=== PATIENT | male | born 1965 ===

== ENCOUNTER 2025-09-06 11:08 | Inpatient (IN) ==
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
--- NOTE | 2025-09-06 11:28 | Pre Anesthesia Assessment ---
Date of Service September 06, 2025 Pre Sedation Assessment Cardiovascular + regular rate Respiratory + respiratory effort normal Pre-Sedation Airway Assessment Hx Sleep Apnea: No Hx Difficult Intubation: No Short, Thick Neck: No Thyromental Distance: < 3.5 Finger Breadths Oral Cavity: + Dental Abnormalities ASA: ASA3 Procedure Planning Contraindications for Sedation: none Current Medications Reviewed: Yes Notes The planned sedation has been discussed with the patient. Informed Consent was obtained. I have identified the patient, determined the appropriateness of sedation and have assessed the patient immediately prior to the procedure. All medicine(s) and interventions are by my order.
[2025-09-06 11:29] LABS: Hematocrit (blood only) 46.0 % (42.0-52.0); Hemoglobin 14.4 g/dl (14.0-18.0); Immature Granulocytes # (auto) 0.03 K/uL (0.01-0.20); Immature Granulocytes % (auto) 0.3 %; Mean Corpuscular Hemoglobin 28.3 pg (25.0-34.0); Mean Corpuscular Volume 90.4 fL (80.0-100.0); Platelet Count 215 K/uL (130-400); RDW Standard Deviation 44.3 fL (36.4-46.3); Red Blood Count 5.09 M/uL (4.70-6.10); White Blood Count 9.82 K/ul (4.8-10.8)
--- NOTE | 2025-09-06 11:30 | Cardiology Consultation ---
Date of Consultation September 06, 2025 Assessment & Plan (1) Complete heart block: Patient seen emergently in the setting of complete heart block with prolonged pauses requiring CPR at outside hospital. He remains in heart block currently with wide ventricular escape in the 50s. He is chest pain-free but endorses 3 days of abdominal pain and shortness of breath with reported HS TropI of >70,000;. Concern for ACS involving RCA leading to conduction abnormalities. Recommend urgent cardiac catheterization and possible temporary transvenous pacemaker. Procedure discussed with patient and and agreeable on proceeding. Further recommendation pending findings of angiography. History of Present Illness History of Present Illness 60-year-old man seen emergently in the ED after transfer from [facility] after PEA cardiac arrest. Patient has no significant past cardiac history. Previously told had mitral valve prolapse. No history of diabetes or prior CVA. He has post back surgery. Was on Florinef at some point, unsure why but states was told no longer needs it. At time of arrival to [facility] patient awake, alert, normal O2 sats on NC. On minimal norepinephrine with SBP in the 100s, heart rates in the 50s. Per report from EMS had advanced AV block with 30 second pause requiring CPR, epi at outside hospital. On ROSC had complete heart block with wide escape rhythm in 50s to 60s. No other prolonged pauses in route. Per report HS TropI more than 70,000 at outside hospital. Here reports being chest pain-free. Reports 3 days of shortness of breath, orthopnea and abdominal pain. Symptoms unchanged today but presented to ED due to concern that had not improved over multiple days. ECG again showed complete heart block with wide escape rhythm in the 50s and T wave inversions inferiorly and in V4 through V6. 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 Non-smoker. Allergies Allergy/AdvReac Type Severity Reaction Status Date / Time No Known Allergies Allergy Unverified 05/30/20 13:45 Home Medications Medication Instructions Recorded Confirmed Type atorvastatin 20 mg tablet 20 mg PO HS 09/06/25 09/06/25 History sertraline 50 mg tablet 50 mg PO DAILY 09/06/25 09/06/25 History Patient History Social History Smoking Status: Never smoker Hx Alcohol Use: No Hx Substance Use: No Preferred Language: Swiss Communication Ability: Effective Collection Systems Worker Required: No Beliefs That Will Affect Care: None Current Living Situation: Spouse Other Information That Helps Us Care for You: No Feels Safe at Home: Yes Safety Concerns: Feels Safe At This Time Assistive Devices: Glasses Review of Systems Review of Systems: None obtained the setting of emergent situation Physical Exam Physical Exam: General: Comfortable, dorsey HEENT: Sclerae anicteric Lungs: Clear anteriorly Cardiac: Bradycardic, no murmurs Vascular: Nonpalpable radial pulses. 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 Abdomen: Soft, nontender Extremities: Distal lower extremities cool no peripheral edema Neuro: Nonfocal Psych: Alert orient x3, normal affect and mood PG Care Time/CCT Total # of Minutes Spent Total Time Spent with Patient: Total time spent is greater than 50% in coordination of care (as documented) at patient's floor/unit and/or counseling patient: Coding Level of Care Code 34869 OFFICE CONSULT LVL 40M Diagnoses Complete heart block I44.2
[2025-09-06] MEDS: NITROGLYCERIN/D5W 100MCG/ML 20ML SYR ONE (11:38)
[2025-09-06] MEDS: niCARdipine 2,000 MCG/20 ML SYR ONE (11:38)
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
[2025-09-06 11:47] LABS: Alanine Aminotransferase 38 U/L (7-52); Albumin Globulin Ratio 1.4 (0.9-2); Albumin Level 3.8 gm/dl (3.4-5.0); Alkaline Phosphatase 102 U/L (34-104); Anion Gap 7 (3-11); Bilirubin,Total 0.9 mg/dl (0.2-1.0); Blood Urea Nitrogen 26 mg/dl (6-23); Calcium 8.0 mg/dl (8.6-10.3); Carbon Dioxide 26 mmol/L (21-32); Chloride 103 mmol/L (98-107); Globulin 2.7 gm/dl (2.5-4.0); Glucose 172 mg/dl (70-99(Fasting)); Lipase 14 U/L (11-82); Potassium 5.2 mmol/L (3.5-5.1); Sodium 136 mmol/L (136-145); Total Protein 6.5 gm/dl (6.0-8.3)
[2025-09-06] MEDS: MIDAZOLAM HCL 1 MG/ML 2ML VIAL ONE (12:02)
[2025-09-06] MEDS: HEPARIN (PORCINE) 1000 UNIT/ML 10 ML (CATH LAB USE ONLY) ONE (12:02)
[2025-09-06] MEDS: ATROPINE SULFATE 0.1 MG/ML 10ML SYR IV ONE (12:03)
[2025-09-06] MEDS: ONDANSETRON INJ 2 MG/ML 2 ML VIAL ONE (12:03)
[2025-09-06] MEDS: OPTIRAY 350 ONE (12:03)
[2025-09-06] MEDS: RAPID SEQUENCE INDUCTION BAG ONE (12:03)
[2025-09-06] MEDS: FUROSEMIDE 40 MG/4 ML VIAL IV ONE (12:07)
--- NOTE | 2025-09-06 12:17 | Post Anesthesia Assessment ---
Date of Service September 06, 2025 Post Sedation Assessment Vital Signs Temp Pulse Pulse Resp BP BP Pulse Ox 09/06/25 11:08 59 L 18 109/85 97 09/06/25 11:08 97 09/06/25 11:08 09/06/25 11:08 59 L 18 97 09/06/25 11:08 97.9 F 59 L 18 109/85 97 O2 Del Method O2 Flow Rate 09/06/25 11:08 Nasal Cannula 2 09/06/25 11:08 Nasal Cannula 2 09/06/25 11:08 Nasal Cannula 2 09/06/25 11:08 Nasal Cannula 2 09/06/25 11:08 Nasal Cannula 2 Recovery Score Activity: Moves 4 extremities Respiration: Deep Breath/Cough Circulation: +/-20% PreAnes Value Consciousness: Fully Awake Oxygen Saturation: O2 needed for >90% Discharge Sedation Level of Care: Fast Track Phase II
--- NOTE | 2025-09-06 12:46 | Post Operative Brief Note ---
Cardiology Brief Post Op Date of Surgery September 06, 2025 Pre & Post Diagnosis ACS, complete heart block Procedure Coronary angiography Left heart catheterization Transvenous temporary pacemaker placement [employer] Rosario MD Umbrella Cutter Harriet Estimated Blood Loss 20 Findings See Below Normal coronary arteries Elevated LVEDP 26 Mildly reduced systolic function, inferior wall motion abnormality on LV gram. Successful placement of transvenous pacemaker via right CFV Anesthesia Type RN Sedation Complications none Disposition Accompanied Patient To Recovery: Yes Disposition: Recovery Room
--- NOTE | 2025-09-06 13:37 | Cardiac Catheterization ---
[facility] Data: Manager Sourcing Cardiac Status Clinical evaluation leading to the procedure CAD Presenation: Non STEMI Anginal Classification: CCS IV Diagnostic Physicians Name: Power Rosario MD Closure Device Recommendations: Medical Therapy and/or Counseling Cardiac Cath Procedure Full Procedure Date September 06, 2025 Pre-Procedure Diagnosis Pre-Procedure Diagnosis: Non STEMI and Arrhythmia (Complete heart block) AUC Score AUC Score: 9 Post-Procedure Diagnosis Post-Procedure Diagnosis: Mild CAD and Elevated Intracardiac Pressures Procedure(s) Performed Procedure(s) Performed: Coronary Angiography, Left Heart Cath, LV Angiography and Ultrasound Guided Vascular Access Linen Room Houseperson Power Rosario MD Room Designer(s) Harriet Estimated Blood Loss Estimated Blood Loss: 20 Medication(s) Medication(s): Fentanyl, Heparin, Lidocaine 1%, Nicardipine, Nitroglycerin and Versed Summary of Findings Indication: Suspected ACS, high degree AV block Access: 6 Fr slender right radial artery under ultrasound guidance. 7 Fr CFV under ultrasound guidance Catheters: [place], diagnostic JL 3.5, pigtail Findings: LM -Short, normal caliber, no significant disease LAD -medium caliber, 20% mid LAD stenosis at takeoff of large diagonal. Remainder of LAD without significant disease and wraps around apex. Large D1 with 20 to 30% ostial stenosis but remainder of vessel without significant disease. Circumflex -medium caliber, codominant, mid segment luminal irregularities. Distal vessel without significant disease. Medium OM 2 without disease. Small left PLB, PDA without disease. PDA tapers prior to apex. RCA -small to medium caliber, angiographically normal. Small RPDA without disease and tapers prior to apex. LVEDP -28. With continued high degree AV block decision made to place transvenous pacemaker. Right CFV accessed under ultrasound guidance with placement of 7 Fr sheath 6 Fr transvenous pacemaker navigated under fluoroscopy into right ventricle. Successful pacing confirmed to outputs <1 mA Final pacemaker settings: VVI 50 bpm, 5 mA Arterial Closure: TR band Summary: 1. Minimal nonobstructive coronary artery disease - 20% mid LAD, 25% ostial D1 2. Left-sided heart failure (LVEDP 28). LV gram LVEF 50% with basal to mid inferior hypokinesis. 3. Successful placement of temporary transvenous pacemaker Recommendations: No acute or high risk obstructive disease noted on angiography. With significantly elevated troponin, apparent wall motion abnormality question myocarditis versus transient obstructive disease with eccentric plaque or embolism. Echocardiogram pending Check inflammatory markers, viral and Lyme studies Trend troponin until peak Recommend heparin infusion overnight ASCVD risk factor modification Continue diuresis. Was given IV Lasix 40 mg x 1 in Manager Sourcing Wean norepinephrine as able Maintain transvenous pacemaker for now. Hopeful conduction will improve and will not need permanent pacemaker. Hemodynamics Rest Ao:: 115/69/84 Final Ao: 108/75/88 LV: 100/28 Recommendations Recommendations: Medical Therapy and/or Counseling Radiation Exposure (mGy) 1627 Contrast (mls) 100 Anesthesia Moderate 9705-6995 Procedural Complication(s) None Disposition ICU I attest to the content of the Intraoperative Record and any orders documented therein. Any exceptions are noted below. [facility] Card Cath Procedure Codes Cardiac Catheterization Procedure 1: Cardiovascular Cath Procedures: 72997 Coronaries and LHC (+/-LV) Therapeutic Services & Ancillary Procedure 1: Cardiovascular Tx and Anc Procedures: 37283 Ultrasonic Guidance Vascular Access Procedure 2: Cardiovascular Tx and Anc Procedures: 39118 Ultrasonic Guidance Vascular Access Moderate Sedation Procedure 1: Sedation/Anesthesia: 42903 Mod Sedation by the same physician;Init15 Min C hild Age 5 & Up Procedure 2: Sedation/Anesthesia: 24247 Mod Sedation by the same physician; Ea [id number] Minutes PG Care Time/CCT Total # of Minutes Spent Total Time Spent with Patient: Total time spent is greater than 50% in coordination of care (as documented) at patient's floor/unit and/or counseling patient:
--- NOTE | 2025-09-06 14:12 | Billing Data ---
Date of Service September 06, 2025 Coding Level of Care Code 60656 INT INP/OBS CARE
--- NOTE | 2025-09-06 14:13 | Critical Care Consultation ---
Date of Consultation September 06, 2025 Assessment & Plan (1) Urinary retention: (2) Elevated troponin: (3) Cardiac arrest: (4) Complete heart block: Plan George Sandoval is a 60-year-old male with no significant past medical history who presented to [facility] with abdominal pain and shortness of breath. While being evaluated at [facility] the patient became unresponsive with no palpable pulse and chest compressions were started. ROSC was achieved after 30 seconds. Rhythm post ROSC showed complete heart block and patient was started on transcutaneous pacing. Transfer to [facility] ED transvenous pacemaker was placed. Neuro: -Neuro intact -Monitor and image as appropriate. CV: Cardiac arrest possible cardiac event/ischemic etiology in setting of CHB; Shock; ELOISE; Type II demand ischemia -Patient on Levophed post cardiac cath. No off on evaluation. -Cath showed no overt occlusion of coronary arteries. Possible decrease wall motion in inferior wall. -Heparin gtt started no bolus. -TTE pending -Troponin 43860. Repeat pending. Third degree heart block -Transvenous pacemaker in place at 5mA and 50bpm. Patient intrinsic rate 60bpm. -Check TSH, IgA, UDS, and evaluation for myocarditis. Pulm: -No issues -Maintain SpO2 > 92% -Patient on 2L nasal cannula -Wean to SpO2 goal -CXR ordered. No PTX. GI: -No acute issues -Advance diet as tolerated : Urinary retention -Bladder scan with > 850. Voiding small amounts. -Difficult Gary placement -Urology consulted. Hyperkalemia -K post cath 5.2 -Consider 10 units of insulin with dextrose and calcium if arrhythmia develops. Possible BONNIE stage 1 -Creatinine 1.4 -Unclear what baseline is -Possible hypoperfusion from arrest v. post obstructive -Monitor renal function qam Heme: -No acute issues -Monitor CBC qam Endo: Stress Hyperglycemia -Maintain BG 140-180 -Start ICU insulin gtt protocol. ID: -WBC 8.62 -Afebrile -Monitor and culture as appropriate. Prophylaxis: -GI prophylaxis not indicated. -Heparin gtt -SCD for mechanical DVT prophylaxis Disposition: ICU for third degree heart block requiring TVP and vasoactive medications in setting of cardiac arrest with risk for decline. Patient is full code. Patient updated at bedside by ICU provider on 09/06/25. Thanks you for allowing us to participate in this patient's care. Please feel free to reach out with questions or concerns. I have personally spent 45 minutes of critical care time in the direct management of this patient. This is a life/limb threatening event. This includes time spent evaluating patient, direct bedside care, chart review, placing orders, interpretation of diagnostic studies, discussion with consultants, patient, and family members, as well as other required patient management activities. This time is exclusive of all separately billable procedures, and teaching time and separate from and in addition to any other critical care service time. Supervising Physician Co-Signing Physician Notes I have personally evaluated and examined this patient. I agree with assessment and plan of Geoff ZHENG. Travel history: No were outside of [place] with the exception of [place] ([place] approximately 20 years ago. No new immunizations, no sick contacts, no change in bowel habits with the exception of constipation starting approximately Friday. Patient is not a . No family history of autoimmune disease particularly lupus or rheumatoid Continuing evaluation for myocarditis. Checking TSH, UDS, tissue trans glutaminase IgA antibody: Send out lab: For possible cross-reactivity with celiac disease given patient had prodromal GI upset, IgA level, (patient low risk for celiac disease)[employer] respiratory panel, HIV, coxsackie A antibody, ESR, rheumatoid factor: reference lab, NIMESH panel, RPR: Reference labacute hepatitis panel, parvovirus IgG and IgM: Reference panel, herpes virus 6 reference lab, acute Henrietta-Otoole panel, CMV screen and titer: Reference lab. Patient does not have elevated white count nor eosinophilia. Discussed with cardiology. No indication for treatment with high-dose steroids at this point as etiology is unclear and underlying function appears to be adequate not withstanding the intermittent complete heart block, if patient were to decompensate he would likely benefit from endocardial biopsy and high-dose steroid administration. At that point he would require higher level of care as we cannot perform endocardial biopsy. History of Present Illness Reason for Consultation: Post cardiac arrest/high degree AV block with TVP Attending Physician: Power Rosario MD History of Present Illness George Sandoval is a 60-year-old male with no significant past medical history who presented to [facility] with abdominal pain and shortness of breath. Theses symptoms had been occurring for the past few days with a waxing and waning pattern. While being evaluated at [facility] the patient became unresponsive with no palpable pulse and chest compressions were started. ROSC was achieved after 30 seconds. Rhythm post ROSC showed complete heart block and patient was started on transcutaneous pacing. Patient also hypotensive and norepinephrine gtt started. Patient transferred to [facility] ED where a heart alert was activated. Patient taken to electronic lab technician where a left heart cath was performed which showed no overtly occluded coronary arteries. There was noted to be some decrease in inferior wall motion. A transvenous pacemaker was placed. The patient was brought back to the ICU post cath for continued evaluation and management of complete heart block s/p cardiac arrest requiring transvenous pacemaker and vasoactive medications. Allergies Allergy/AdvReac Type Severity Reaction Status Date / Time No Known Allergies Allergy Unverified 05/30/20 13:45 Home Medications Medication Instructions Recorded Confirmed Type atorvastatin 20 mg tablet 20 mg PO HS 09/06/25 09/06/25 History sertraline 50 mg tablet 50 mg PO DAILY 09/06/25 09/06/25 History Patient History Social History Smoking Status: Never smoker Hx Alcohol Use: No Hx Substance Use: No Preferred Language: Namibian Communication Ability: Effective Hand Assembler Required: No Beliefs That Will Affect Care: None Current Living Situation: Spouse Other Information That Helps Us Care for You: No Feels Safe at Home: Yes Safety Concerns: Feels Safe At This Time Assistive Devices: Glasses Review of Systems Review of Systems: All systems reviewed & are unremarkable except as noted in HPI & below Physical Exam Physical Exam: VITALS: Reviewed. WEIGHT/BMI reviewed. GEN: Healthy appearing, well-developed, NAD. PSYCH: Good Judgment. AOx3. Normal memory, mood, and affect. HEENT -Head: NC/AT; -Eyes: PERRL, EOMI. No discharge or redn ess; -Ears: External ears are normal. -Nose: Normal nares. -Mouth and throat: MMM. Normal gums, muc tomasa, palate,. Good dentition. NECK: Supple, with no masses. CV: slow rate with regular rhythm, no m/r/g. LUNGS: CTAB, no w/r/c. ABD: Soft, NT/ND, NBS, no masses or organomegaly. : N/A SKIN: Warm, well perfused. No skin rashes or abnormal lesions. MSK: No deformities, Normal gait. EXT: No clubbing, cyanosis, or edema. Right femoral transvenous pacemaker in place. NEURO: Normal muscle strength and tone. No focal deficits. Results & Data Results & Data Vital Signs (Past 12 Hours) Vital Signs Temp Pulse Pulse Resp BP BP Pulse Ox 09/06/25 13:11 09/06/25 13:11 36.8 C 66 21 114/78 97 09/06/25 12:45 66 18 122/85 94 09/06/25 12:30 67 18 122/85 94 09/06/25 12:20 74 18 118/86 94 09/06/25 11:08 59 L 18 109/85 97 09/06/25 11:08 97 09/06/25 11:08 09/06/25 11:08 59 L 18 97 09/06/25 11:08 36.6 C 59 L 18 109/85 97 O2 Del Method O2 Flow Rate 09/06/25 13:11 Nasal Cannula 2 09/06/25 13:11 Nasal Cannula 2 09/06/25 12:45 Room Air 09/06/25 12:30 Room Air 09/06/25 12:20 Room Air 09/06/25 11:08 Nasal Cannula 2 09/06/25 11:08 Nasal Cannula 2 09/06/25 11:08 Nasal Cannula 2 09/06/25 11:08 Nasal Cannula 2 09/06/25 11:08 Nasal Cannula 2 Critical Care Results & Data Vital Signs (Past 12 Hours) Vital Signs Temp Pulse Pulse Resp BP BP Pulse Ox 09/06/25 13:11 09/06/25 13:11 36.8 C 66 21 114/78 97 09/06/25 12:45 66 18 122/85 94 09/06/25 12:30 67 18 122/85 94 09/06/25 12:20 74 18 118/86 94 09/06/25 11:08 59 L 18 109/85 97 09/06/25 11:08 97 09/06/25 11:08 09/06/25 11:08 59 L 18 97 09/06/25 11:08 36.6 C 59 L 18 109/85 97 O2 Del Method O2 Flow Rate 09/06/25 13:11 Nasal Cannula 2 09/06/25 13:11 Nasal Cannula 2 09/06/25 12:45 Room Air 09/06/25 12:30 Room Air 09/06/25 12:20 Room Air 09/06/25 11:08 Nasal Cannula 2 09/06/25 11:08 Nasal Cannula 2 09/06/25 11:08 Nasal Cannula 2 09/06/25 11:08 Nasal Cannula 2 09/06/25 11:08 Nasal Cannula 2 Lab & Micro Results (Past 24 Hours) RBC 4.99 M/uL (4.70-6.10) 09/06/25 WBC 8.62 K/ul (4.8-10.8) 09/06/25 Hgb 14.2 g/dl (14.0-18.0) 09/06/25 Hct 44.9 % (42.0-52.0) 09/06/25 MCV 90.0 fL (80.0-100.0) 09/06/25 MCH 28.5 pg (25.0-34.0) 09/06/25 MCHC 31.6 g/dL (32.0-36.0) L 09/06/25 RDW Standard Deviation 44.8 fL (36.4-46.3) 09/06/25 RDW Coefficient of Variation 13.6 % (11.5-14.5) 09/06/25 Plt Count 186 K/uL (130-400) 09/06/25 MPV 10.5 fL (9.4-12.4) 09/06/25 Neutrophils (%) (Auto) 74.8 % 09/06/25 Lymphocytes (%) (Auto) 14.4 % 09/06/25 Monocytes # (Auto) 0.85 K/uL (0.11-0.59) H 09/06/25 Eosinophils # (Auto) 0.01 K/uL (0.00-0.50) 09/06/25 Immature Granulocyte % (Auto) 0.3 % 09/06/25 Neutrophils # (Auto) 6.45 K/uL (1.40-6.50) 09/06/25 Lymphocytes # (Auto) 1.24 K/uL (1.20-3.40) 09/06/25 Monocytes # (Auto) 0.85 K/uL (0.11-0.59) H 09/06/25 Eosinophils # (Auto) 0.01 K/uL (0.00-0.50) 09/06/25 Basophils # (Auto) 0.04 K/uL (0.00-0.20) 09/06/25 Immature Granulocyte # (Auto) 0.03 K/uL (0.01-0.20) 5 Na 136 mmol/L (136-145) 09/06/25 K 5.2 mmol/L (3.5-5.1) H 09/06/25 Cl 103 mmol/L (98-107) 09/06/25 CO2 26 mmol/L (21-32) 09/06/25 Anion Gap 7 (3-11) 09/06/25 BUN 26 mg/dl (6-23) H 09/06/25 Creatinine 1.39 mg/dl (0.6-1.4) 09/06/25 BUN/Creatinine Ratio 18.7 (10-20) 09/06/25 Glu 172 mg/dl (70-99(Fasting)) H 09/06/25 Ca 8.0 mg/dl (8.6-10.3) L 09/06/25 Total Bilirubin 0.9 mg/dl (0.2-1.0) 09/06/25 AST 145 U/L (13-39) H 09/06/25 ALT 38 U/L (7-52) 09/06/25 Alkaline Phosphatase 102 U/L (34-104) 09/06/25 TP 6.5 gm/dl (6.0-8.3) 09/06/25 Albumin 3.8 gm/dl (3.4-5.0) 09/06/25 Globulin 2.7 gm/dl (2.5-4.0) 09/06/25 Albumin/Globulin Ratio 1.4 (0.9-2) 09/06/25 Calcium Level 8.0 mg/dl (8.6-10.3) L 09/06/25 11:13 Prothromb Time International Ratio Pending 09/06/25 15:5 5 RT Ventilator Mngmt (Last Documented) Ventilator Ordered Settings Respiratory Rate 21 09/06/25 13:11 Ventilator - PT Measurements Respiratory Rate 21 Coding Level of Care Code 33598 CRITICAL CARE 1ST 30-74M Diagnoses Urinary retention R33.9 Elevated troponin R79.89 Cardiac arrest I46.9 Complete heart block I44.2
--- NOTE | 2025-09-06 14:16 | XCELERA ---
[id number]
[2025-09-06] MEDS ORDERED: HEPARIN SOD (PORCINE) 1000 UNIT/ML IV ONE (14:28)
--- NOTE | 2025-09-06 15:22 | Electrocardiogram Report ---
Test Reason : Blood Pressure : */* mmHG Vent. Rate : 54 BPM Atrial Rate : 129 BPM P-R Int : * ms QRS Dur : 158 ms QT Int : 498 ms P-R-T Axes : 79 113 -84 degrees QTcB Int : 472 ms Sinus tachycardia with complete heart block and a ventricular escape rhythm Non-specific intra-ventricular conduction block Lateral infarct , age undetermined Abnormal ECG When compared with ECG of 12-Jul-2014 08:54, Significant changes have occurred Confirmed by Rigo Chen ([id number]) on 09/06/2025 3:21:59 PM Referred By: REFERRED SELF Confirmed By: Rigo Chen
[2025-09-06] MEDS: Heparin IV Adult Wt-Based Standard w/ INITIAL Bolus Protocol IV STA (15:25)
[2025-09-06 15:42] LABS: Hematocrit (blood only) 44.9 % (42.0-52.0); Hemoglobin 14.2 g/dl (14.0-18.0); Immature Granulocytes # (auto) 0.03 K/uL (0.01-0.20); Immature Granulocytes % (auto) 0.3 %; Mean Corpuscular Hemoglobin 28.5 pg (25.0-34.0); Mean Corpuscular Volume 90.0 fL (80.0-100.0); Platelet Count 186 K/uL (130-400); RDW Standard Deviation 44.8 fL (36.4-46.3); Red Blood Count 4.99 M/uL (4.70-6.10); White Blood Count 8.62 K/ul (4.8-10.8)
[2025-09-06] MEDS: SERTRALINE HCL 50 MG TABLET PO SCH (15:58)
[2025-09-06] MEDS: METOCLOPRAMIDE HCL INJ 5 MG/ML 2 ML VIAL ONE (16:04)
--- NOTE | 2025-09-06 16:23 | Urology Consultation ---
Date of Consultation September 06, 2025 Assessment & Plan (1) Urinary retention: He had over 800ml of urine on bladder scan and multiple failed attempts at passing a catheter. We recommended repeat catheter attempt and he agreed to proceed with this. 18 fr coude catheter was placed without difficulty and clear yellow urine was drained. No hematuria. Recommend catheter for 7-10 days, follow up as outpatient for voiding trial. Could consider addition of tamsulosin. Procedure: Urethra was prepped with betadine, lidocaine gel was injected into the urethra. A 18 fr coude catheter was placed without difficulty and balloon inflated with 10ml. Clear yellow urine was drained. He tolerated this well without complications. History of Present Illness Reason for Consultation: urinary retention, difficult chino catheter placement Attending Physician: Power Rosario MD History of Present Illness 60 year old patient admitted today with acute coronary syndrome, complete heart block, underwent Coronary angiography, Left heart catheterization, Transvenous temporary pacemaker placement with Dr Rosario. In the ICU at this time. Has been voiding small amounts, bladder scan showed over 800ml of retained urine. He has some pressure in his lower abdomen. Denies past urological problems/surgery, no h/o of BPH that he is aware of. No prior voiding difficulties. Multiple attempts were made to pass catheter prior to our consult. Allergies Allergy/AdvReac Type Severity Reaction Status Date / Time No Known Allergies Allergy Unverified 05/30/20 13:45 Home Medications Medication Instructions Recorded Confirmed Type atorvastatin 20 mg tablet 20 mg PO HS 09/06/25 09/06/25 History sertraline 50 mg tablet 50 mg PO DAILY 09/06/25 09/06/25 History Patient History Social History Smoking Status: Never smoker Hx Alcohol Use: No Hx Substance Use: No Preferred Language: Frisian Communication Ability: Effective Lead Pressman Required: No Beliefs That Will Affect Care: None Current Living Situation: Spouse Other Information That Helps Us Care for You: No Feels Safe at Home: Yes Safety Concerns: Feels Safe At This Time Assistive Devices: Glasses Physical Exam Constitutional: well developed and well nourished; no acute distress Respiratory: normal respiratory effort Gastrointestinal (Abdomen): Percussion/Palpation: abdomen nontender Psychiatric: A+Ox3, euthymic affect Genitourinary: no penis abnormality and no meatus abnormal Results & Data Vital Signs (Past 12 Hours) Vital Signs Temp Pulse Pulse Resp BP BP Pulse Ox 09/06/25 13:11 09/06/25 13:11 36.8 C 66 21 114/78 97 09/06/25 12:45 66 18 122/85 94 09/06/25 12:30 67 18 122/85 94 09/06/25 12:20 74 18 118/86 94 09/06/25 11:08 59 L 18 109/85 97 09/06/25 11:08 97 09/06/25 11:08 09/06/25 11:08 59 L 18 97 09/06/25 11:08 36.6 C 59 L 18 109/85 97 O2 Del Method O2 Flow Rate 09/06/25 13:11 Nasal Cannula 2 09/06/25 13:11 Nasal Cannula 2 09/06/25 12:45 Room Air 09/06/25 12:30 Room Air 09/06/25 12:20 Room Air 09/06/25 11:08 Nasal Cannula 2 09/06/25 11:08 Nasal Cannula 2 09/06/25 11:08 Nasal Cannula 2 09/06/25 11:08 Nasal Cannula 2 09/06/25 11:08 Nasal Cannula 2 PG Care Time/CCT Total # of Minutes Spent Total Time Spent with Patient: Total time spent is greater than 50% in coordination of care (as documented) at patient's floor/unit and/or counseling patient: Coding Level of Care Code 90063 IN/OBS CONSULT LVL 3,45M Diagnoses Urinary retention R33.9
--- NOTE | 2025-09-06 16:37 | XRay Report ---
EXAM: Portable AP chest radiograph TECHNIQUE: AP portable radiograph of the chest was obtained. INDICATION: Shortness of breath Comparison: Chest radiograph FINDINGS: LINES and TUBES: None CARDIOVASCULAR: Cardiac silhouette is mildly enlarged in size. LUNGS/PLEURA: No focal consolidation identified. Bibasilar atelectasis. Mild pulmonary vascular congestion and chronic interstitial lung changes. Small pleural fluids may be present. No discernible pneumothorax. OSSEOUS/OTHER: No displaced acute osseous process identified. Partially included thoracolumbar spine fusion device. IMPRESSION: Mild congestive changes of the cardiovascular system as above. Electronically signed by Salty Pulido 09-06-2025 4:36 PM
[2025-09-06 16:42] LABS: Immunoglobulin A 278.7 mg/dl (70-400); Immunoglobulin G 806.5 mg/dl (635-1741); Immunoglobulin M 70.3 mg/dl (45-281)
[2025-09-06] MEDS: LIDOCAINE 2% JELLY 5 ML TUBE EXT ONE (16:48)
[2025-09-06] MEDS: METOCLOPRAMIDE HCL INJ 5 MG/ML 2 ML VIAL IV ONE (16:48)
[2025-09-06 16:58] LABS: Thyroid Stimulating Hormone 3.148 uIu/ml (0.300-4.500)
[2025-09-06 17:46] LABS: Amphetamines+Metham, Urine Neg (Neg); MDMA (Ecstacy), Urine Neg (Neg); Marijuana, Urine Neg (Neg)
[2025-09-06] MEDS: LORazepam 1 MG TAB PO STA (17:46)
[2025-09-06 18:13] LABS: INR 1.0 (0.9-1.1); Partial Thromboplastin Time 27 Seconds (21-31); Prothrombin Time 10.6 Seconds (9.0-12.0)
[2025-09-06 18:13] LABS: Chlamydia pneumoniae PCR Not Detected (NotDetected); Coronavirus 229E PCR Not Detected (NotDetected); Coronavirus CoV-2 (COVID19)PCR Not Detected (NotDetected); Coronavirus HKU1 PCR Not Detected (NotDetected); Coronavirus NL63 PCR Not Detected (NotDetected); Coronavirus OC43PCR Not Detected (NotDetected); Human Metapneumovirus PCR Not Detected (NotDetected); Parainfluenza Virus 1 PCR Not Detected (NotDetected); Parainfluenza Virus 2 PCR Not Detected (NotDetected); Parainfluenza Virus 3 PCR Not Detected (NotDetected); Parainfluenza Virus 4 PCR Not Detected (NotDetected); Respiratory Syncytial VirusPCR Not Detected (NotDetected); Rhinovirus/Enterovirus PCR Not Detected (NotDetected)
[2025-09-06] MEDS: HEPARIN 25000 UNIT/500 ML D5W 25,000 UNITS/500 ML BAG IV SCH (18:22)
[2025-09-06 19:11] LABS: Hep B Surface Ag with confirm Negative (Negative)
[2025-09-06 19:16] LABS: Hep C Ab Rflx HepCQuant RNA Negative (Negative)
[2025-09-06 19:24] LABS: EBV Nuclear Antigen IgG Ab Negative; EBV Nuclear Antigen IgG Quant < 3.0 U/mL (< 18.0)
[2025-09-06 19:25] LABS: EBV Early Antigen IgG Ab Positive (Negative); EBV Early Antigen IgG Quant 21.7 U/mL (< 9.0); EBV IgM Antibody Negative; EBV IgM Quant < 10.0 U/mL (< 36.0)
[2025-09-06 19:26] LABS: EBV IgG Antibody Positive; EBV IgG Quant 252.0 U/mL (< 18.0)
[2025-09-06 20:12] LABS: Anion Gap 12.0 (3-11); Blood Urea Nitrogen 31.0 mg/dl (6-23); Calcium 8.5 mg/dl (8.6-10.3); Carbon Dioxide 22.0 mmol/L (21-32); Chloride 102.0 mmol/L (98-107); Creatinine Clr Calc Pharmacy 69.7 ml/min; Glucose 177.0 mg/dl (70-99(Fasting)); Magnesium 2.3 mg/dl (1.7-2.4); Potassium 4.4 mmol/L (3.5-5.1); Sodium 136.0 mmol/L (136-145)
[2025-09-06] MEDS: COLCHICINE 0.6 MG TAB PO SCH (20:21)
[2025-09-07] MEDS: MELATONIN 3 MG TAB PO PRN
[2025-09-07] MEDS: LORazepam 1 MG TAB PO STA (00:01)
[2025-09-07 01:24] LABS: ANTI-Xa, UFH(UnfractionatedHep 0.68 IU/ml (0.3-0.7)
[2025-09-07] MEDS: ACETAMINOPHEN 325 MG TAB PO PRN (04:33)
[2025-09-07 05:02] LABS: Hematocrit (blood only) 45.1 % (42.0-52.0); Hemoglobin 14.8 g/dl (14.0-18.0); Immature Granulocytes # (auto) 0.03 K/uL (0.01-0.20); Immature Granulocytes % (auto) 0.3 %; Mean Corpuscular Hemoglobin 28.5 pg (25.0-34.0); Mean Corpuscular Volume 86.9 fL (80.0-100.0); Platelet Count 197 K/uL (130-400); RDW Standard Deviation 43.5 fL (36.4-46.3); Red Blood Count 5.19 M/uL (4.70-6.10); White Blood Count 11.29 K/ul (4.8-10.8)
[2025-09-07] MEDS: ONDANSETRON INJ 2 MG/ML 2 ML VIAL IV PRN (05:11)
[2025-09-07 05:20] LABS: Alanine Aminotransferase 69.0 U/L (7-52); Albumin Level 3.8 gm/dl (3.4-5.0); Alkaline Phosphatase 102.0 U/L (34-104); Anion Gap 12.0 (3-11); Bilirubin,Total 0.7 mg/dl (0.2-1.0); Blood Urea Nitrogen 43.0 mg/dl (6-23); Calcium 8.5 mg/dl (8.6-10.3); Carbon Dioxide 21.0 mmol/L (21-32); Chloride 99.0 mmol/L (98-107); Cholesterol 161.0 mg/dl (0-200); Creatinine Clr Calc Pharmacy 58.0 ml/min; Glucose 198.0 mg/dl (70-99(Fasting)); HDL Cholesterol 29.0 mg/dl; Magnesium 2.6 mg/dl (1.7-2.4); Potassium 4.4 mmol/L (3.5-5.1); Sodium 132.0 mmol/L (136-145); Total Protein 6.7 gm/dl (6.0-8.3); Triglycerides 188.0 mg/dl (0-150)
[2025-09-07 06:06] LABS: ANTI-Xa, UFH(UnfractionatedHep 0.84 IU/ml (0.3-0.7)
--- NOTE | 2025-09-07 06:36 | Communication Note ---
Date of Service: September 07, 2025 Patient monitored overnight. TVP in place, notified in the early AM hours of some abnormalities with pacemaker sensing. Appears there is pacing on T waves. EKG performed. Patient also nauseous. Dr. Rosario was in house for a procedure and kindly came to bedside. He attempted to adjust the sensitivity without improvement. His kasaan rate is in the 90s and thus the TVP was turned off and left in place. Shortly thereafter the patient had episode of large volume watery emesis, approximately 1L. He became hypoxic to the low 80s despite Oxymask at 15L. He was transitioned to HFNC with improvement. He is in no distress, denies dyspnea. No clinical signs of aspiration. CXR performed. ABG confirms profound hypoxemia with pO2 52. At this point I performed POCUS. On my view the patient's LVEF has dropped significantly to around 20-25% grossly. Septum has movement, apical akinesis, lateral hypokinesis. Surprisingly his blood pressure is holding at 94/67 (70). Cr has bumped to 1.66 with oliguria overnight. Troponin and inflammatory markers continue to rise. Given this clinical decompensation I will reach out again to Dr. Rosario. I am concerned he is approaching cardiogenic shock with lack of forward flow. Limited TTE ordered for this AM. Will reach out to Dr. Rosario with these findings and discuss with Dr. Starks regarding further recommendations. Continue support with HFNC, frequent VS, TVP in place and off at this time. HOB up. Zofran PRN. Consideration of high dose steroids. Consideration of transfer to tertiary care for mechanical support. Addendum 0645: Will start Solumedrol. Plan for RHC with Dr. Rosario this AM. Decision regarding transfer to tertiary care pending further evaluation. Coding Level of Care Code None
[2025-09-07 06:37] LABS: iSTAT Art Bld Gas Base Excess -6.0 mmol/L (-9-1.8); iSTAT Art Bld Gas pCO2 Correct 31 mmHg (35-46); iSTAT Art Bld Gas pH Corrected 7.395 (7.35-7.45); iSTAT Arterial Blood Gas pO2 C 52
--- NOTE | 2025-09-07 06:53 | XRay Report ---
EXAM: XR chest 1V portable CLINICAL HISTORY: Hypoxia TECHNIQUE: An X-ray image of the chest was obtained in the AP projection. 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 FINDINGS: Diffuse, ill-defined ground-glass opacities are noted involving both lungs, suggesting the possibility of congestion or edema. Differential possibilities include multifocal pneumonitis. The cardiomediastinal silhouette is within normal limits. Left pleural space is obliterated. No acute osseous abnormality is identified. IMPRESSION: Diffuse, ill-defined ground-glass opacities are noted involving both lungs with bilatreal hilar prominence-New onset. Left pleural space is obliterated-stable. Electronically signed by Oziel Betts 09-07-2025 06:53 AM
[2025-09-07] MEDS ORDERED: STAT IV Infusion **Titration per Protocol STA ×3 (06:59→09:49)
--- NOTE | 2025-09-07 07:20 | Hospitalist Progress Note ---
Date of Service September 07, 2025 Assessment & Plan (1) Cardiac arrest: (2) Complete heart block: (3) Elevated troponin: Plan Pt is a 60 yo male without significant PMH who presents as transfer [facility] with SOB, abdominal pain, elevated troponin, complete heart block and s/p ca rdiac arrest. Pt admitted for cardiac cath and further diagnostics to determine cause of new onset cardiac arrhythmia. Following cath, pt will go to ICU for observation #Cardiac arrest/complete heart block/elevated troponin Pt currently on external pacer. - Cardiology consulted pt to environmental laboratory technician for further assessment - Ordered consult with critical care for placement following cardiac cath Dispo: ICU Diet: TBD VTE prophylaxis: Heparin Code: Full Admission and Anticipated Discharge Date Admission Date: September 06, 2025 Subjective Overnight, pt pacer was turned off due noting it pacing T waves. Pt had episode of vomiting followed by acute hypoxia. Pt was placed on high flow oxy mask and bed side US revealed EF decline to 20-25% with reduction in septal and apical motions. Pt's Troponin level and inflammatory markers also showing up trending. Inventional cardiology plans for right heart cath this morning. Possible transfer to tertiary care center pending results. Review of Systems Review of Systems: As per HPI Physical Exam Physical Exam: Gen: NAD HENT: Normocephalic, atraumatic. External ear without deformities. Trachea midline, no thyromegaly Cardio: RRR, no murmurs or clicks. Resp: CTAB, Equal bilateral chest rise, no increased work of breathing GI: Non distended, soft, non tender, normoactive bowel sounds : Gray in place MSK: Moving all 4 extremities independently Skin: Dry, of normal skin tone, Neuro: A& O x 3, normal affect Results & Data Results & Data Vital Signs (Past 12 Hours) Vital Signs Temp Pulse Pulse Resp BP Pulse Ox O2 Del Method 09/07/25 06:29 96 H 21 96 High Flow Nasal Cannula 09/07/25 06:24 100/75 09/07/25 06:21 96 H 18 92 09/07/25 06:20 21 96 High Flow Nasal Cannula 09/07/25 06:12 93 H 22 89 L 09/07/25 06:09 92 H 24 88 L 09/07/25 06:00 94 H 24 92/62 L 87 L Oxymask 09/07/25 05:58 94 H 24 83/60 L 85 L Oxymask 09/07/25 05:54 99 H 25 H 81 L Oxymask 09/07/25 05:39 98 H 25 H 89/63 L 89 L Nasal Cannula 09/07/25 05:15 90 25 H 107/75 93 Nasal Cannula 09/07/25 04:45 101 H 25 H 88/65 L 92 Nasal Cannula 09/07/25 04:30 88 24 92 Nasal Cannula 09/07/25 04:00 37 C 89 24 83/68 L 91 Nasal Cannula 09/07/25 03:24 93 H 24 92 09/07/25 03:15 90 24 91 09/07/25 03:00 90 23 89 L 09/07/25 02:45 89 24 91 09/07/25 02:27 89 21 88 L 09/07/25 02:12 90 23 90 09/07/25 02:00 87 28 H 92 09/07/25 02:00 104/69 09/07/25 01:39 81 24 91 09/07/25 01:15 83 23 93 09/07/25 01:06 91/64 L 09/07/25 01:06 80 28 H 94 09/07/25 01:03 80 22 93 Nasal Cannula 09/07/25 01:01 78/50 L 09/07/25 01:00 82 19 88 L 09/07/25 00:48 83 23 94 09/07/25 00:30 82 22 94 09/07/25 00:12 84 22 95 09/07/25 00:00 90/67 L 09/07/25 00:00 94 H 09/06/25 23:39 37.2 C 80 23 95 Nasal Cannula 09/06/25 23:02 96 H 24 111/72 95 Nasal Cannula 09/06/25 22:30 97/78 L 09/06/25 22:30 88 21 96 09/06/25 22:00 88/63 L 09/06/25 22:00 70 18 96 09/06/25 21:45 76 20 96 09/06/25 21:39 81 23 96 09/06/25 21:24 83 22 96 09/06/25 21:12 74 24 95 09/06/25 20:57 89 21 96 09/06/25 20:48 77 21 95 09/06/25 20:30 77 21 95 09/06/25 20:12 86 22 90 09/06/25 20:00 92 H 20 93 09/06/25 20:00 37 C 99/77 L 09/06/25 20:00 Nasal Cannula 09/06/25 19:57 89 17 92 Nasal Cannula 09/06/25 19:42 82 24 91 09/06/25 19:39 84 22 89 L 09/06/25 19:27 78 21 88 L O2 Flow Rate FiO2 09/07/25 06:29 50 100 09/07/25 06:24 09/07/25 06:21 09/07/25 06:20 09/07/25 06:12 09/07/25 06:09 09/07/25 06:00 15 09/07/25 05:58 15 09/07/25 05:54 7 09/07/25 05:39 3 09/07/25 05:15 3 09/07/25 04:45 3 09/07/25 04:30 3 09/07/25 04:00 3 09/07/25 03:24 09/07/25 03:15 09/07/25 03:00 09/07/25 02:45 09/07/25 02:27 09/07/25 02:12 09/07/25 02:00 09/07/25 02:00 09/07/25 01:39 09/07/25 01:15 09/07/25 01:06 09/07/25 01:06 09/07/25 01:03 3 09/07/25 01:01 09/07/25 01:00 09/07/25 00:48 09/07/25 00:30 09/07/25 00:12 09/07/25 00:00 09/07/25 00:00 09/06/25 23:39 2 09/06/25 23:02 2 09/06/25 22:30 09/06/25 22:30 09/06/25 22:00 09/06/25 22:00 09/06/25 21:45 09/06/25 21:39 09/06/25 21:24 09/06/25 21:12 09/06/25 20:57 09/06/25 20:48 09/06/25 20:30 09/06/25 20:12 09/06/25 20:00 09/06/25 20:00 09/06/25 20:00 2 09/06/25 19:57 2 09/06/25 19:42 09/06/25 19:39 09/06/25 19:27
[2025-09-07] MEDS: methylPREDNISolone 1,000 MG in SODIUM CHLORIDE 0.9% 250 ML IV ONE (07:37)
[2025-09-07 08:02] LABS: Hemoglobin A1C 6.2 % (4.5-5.6)
--- NOTE | 2025-09-07 08:41 | Critical Care Progress Note ---
Date of Service September 07, 2025 Assessment & Plan (1) Urinary retention: (2) Elevated troponin: (3) Cardiac arrest: (4) Complete heart block: (5) Myocarditis: Plan George Sandoval is a 60-year-old male with no significant past medical history who presented to [facility] with abdominal pain and shortness of breath. While being evaluated at [facility] the patient became unresponsive with no palpable pulse and chest compressions were started. ROSC was achieved after 30 seconds. Rhythm post ROSC showed complete heart block and patient was started on transcutaneous pacing. Transfer to [facility] ED transvenous pacemaker was placed. Neuro: -Neuro intact -Monitor and image as appropriate. 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 -Cath showed no overt occlusion of coronary arteries. Possible decrease wall motion in inferior wall. -Heparin gtt running. -TTE reviewed - 1000 mg Solu-Medrol IV x 1 TSH: UDS: Opiates and benzodiazepines are positive, this is not unexpected most notably cocaine is negative tissue trans glutaminase IgA antibody: Reference lab: For possible cross- reactivity with celiac disease given patient had prodromal GI upset, IgA level, (patient low risk for celiac disease) - IgG concentration within normal limits, IgA within normal concentration, IgM within normal concentration [employer] respiratory panel: Ortiz negative HIV,: Negative coxsackie A antibody,: Pending ESR: Elevated at 30 rheumatoid factor: reference lab: Pending NIMESH panel,: Pending RPR: Negative acute hepatitis panel: Hepatitis B surface antigen negative, hepatitis C negative parvovirus IgG and IgM: Reference panel: Pending herpes virus 6 reference lab: Pending acute Henrietta-Otoole panel: IgG positive, IgM negative CMV screen and titer: Reference lab.: Pending Lyme screen: Negative No significant eosinophilia on differential Third degree heart block -Transvenous pacemaker removed during repeat heart cath Pulm: - Anticipate intubation given hemodynamic instabilities and transfer - Requested by receiving facility Successfully intubated ideal body weight 84.5 kg current tidal volume 600 FiO2 100%. Patient was relatively hypoxic while in cardiac Registered Massage Therapist despite being on high flow oxygen and nonrebreather. GI: -No acute issues - N.p.o. : Urinary retention - Gray placed by urology - 7 to 10-day dwell time then discontinue with voiding trials Hyperkalemia: Resolved BONINE stage 1 - Suspect hypoperfusion Heme: - Systemic anticoagulation with heparin Endo: Stress Hyperglycemia -Maintain BG 140-180 ID: -Afebrile -Monitor and culture as appropriate. Prophylaxis: -Heparin gtt Attempted to contact and update patient's , she does not have independent number listed in record, home number left message to contact ICU, cell number is 2 work/[employer]: Discussed with cardiology they have updated the family Disposition: Pending transfer to [facility] Admission and Anticipated Discharge Date Admission Date: September 06, 2025 Supervising Physician Co-Signing Physician Notes I have personally spent 55 minutes of critical care time in the direct management of this patient. This is a life/limb threatening event. This includes time spent evaluating patient, direct bedside care, chart review, placing orders, interpretation of diagnostic studies, discussion with consultants, patient, and family members, as well as other required patient management activities. This time is exclusive of all separately billable procedures, and teaching time and separate from and in addition to any other critical care service time. Subjective Overnight patient had coud catheter placed, also had decompensation in soda fountain clerk hours necessitating return to cardiac Registered Massage Therapist. At this point the patient has inserted an Impella assist device and cardiology is contacting [facility] for transfer to tertiary care. We are starting steroids for fulminant myocarditis Physical Exam Physical Exam: General: Alert. Ashen. Skin: Cool, dry, Head: Atraumatic Ears, nose, mouth and throat: airway patent Cardiovascular: Decreased peripheral perfusion Respiratory: no respiratory distress Gastrointestinal: Non distended Musculoskeletal: No deformity Results & Data Results & Data Vital Signs (Past 12 Hours) Vital Signs Temp Pulse Pulse Resp BP Pulse Ox O2 Del Method 09/07/25 07:24 36.7 C 09/07/25 06:29 96 H 21 96 High Flow Nasal Cannula 09/07/25 06:24 100/75 09/07/25 06:21 96 H 18 92 09/07/25 06:20 21 96 High Flow Nasal Cannula 09/07/25 06:12 93 H 22 89 L 09/07/25 06:09 92 H 24 88 L 09/07/25 06:00 94 H 24 92/62 L 87 L Oxymask 09/07/25 05:58 94 H 24 83/60 L 85 L Oxymask 09/07/25 05:54 99 H 25 H 81 L Oxymask 09/07/25 05:39 98 H 25 H 89/63 L 89 L Nasal Cannula 09/07/25 05:15 90 25 H 107/75 93 Nasal Cannula 09/07/25 04:45 101 H 25 H 88/65 L 92 Nasal Cannula 09/07/25 04:30 88 24 92 Nasal Cannula 09/07/25 04:00 37 C 89 24 83/68 L 91 Nasal Cannula 09/07/25 03:24 93 H 24 92 09/07/25 03:15 90 24 91 09/07/25 03:00 90 23 89 L 09/07/25 02:45 89 24 91 09/07/25 02:27 89 21 88 L 09/07/25 02:12 90 23 90 09/07/25 02:00 87 28 H 92 09/07/25 02:00 104/69 09/07/25 01:39 81 24 91 09/07/25 01:15 83 23 93 09/07/25 01:06 91/64 L 09/07/25 01:06 80 28 H 94 09/07/25 01:03 80 22 93 Nasal Cannula 09/07/25 01:01 78/50 L 09/07/25 01:00 82 19 88 L 09/07/25 00:48 83 23 94 09/07/25 00:30 82 22 94 09/07/25 00:12 84 22 95 09/07/25 00:00 90/67 L 09/07/25 00:00 94 H 09/06/25 23:39 37.2 C 80 23 95 Nasal Cannula 09/06/25 23:02 96 H 24 111/72 95 Nasal Cannula 09/06/25 22:30 97/78 L 09/06/25 22:30 88 21 96 09/06/25 22:00 88/63 L 09/06/25 22:00 70 18 96 09/06/25 21:45 76 20 96 09/06/25 21:39 81 23 96 09/06/25 21:24 83 22 96 09/06/25 21:12 74 24 95 09/06/25 20:57 89 21 96 09/06/25 20:48 77 21 95 O2 Flow Rate FiO2 09/07/25 07:24 09/07/25 06:29 50 100 09/07/25 06:24 09/07/25 06:21 10/08/25 06:20 09/07/25 06:12 09/07/25 06:09 09/07/25 06:00 15 09/07/25 05:58 15 09/07/25 05:54 7 09/07/25 05:39 3 09/07/25 05:15 3 09/07/25 04:45 3 09/07/25 04:30 3 09/07/25 04:00 3 09/07/25 03:24 09/07/25 03:15 09/07/25 03:00 09/07/25 02:45 09/07/25 02:27 09/07/25 02:12 09/07/25 02:00 09/07/25 02:00 09/07/25 01:39 09/07/25 01:15 09/07/25 01:06 09/07/25 01:06 09/07/25 01:03 3 09/07/25 01:01 09/07/25 01:00 09/07/25 00:48 09/07/25 00:30 09/07/25 00:12 09/07/25 00:00 09/07/25 00:00 09/06/25 23:39 2 09/06/25 23:02 2 09/06/25 22:30 09/06/25 22:30 09/06/25 22:00 09/06/25 22:00 09/06/25 21:45 09/06/25 21:39 09/06/25 21:24 09/06/25 21:12 09/06/25 20:57 09/06/25 20:48 Critical Care Results & Data Vital Signs (Past 12 Hours) Vital Signs Temp Pulse Pulse Resp BP Pulse Ox O2 Del Method 09/07/25 08:00 97 H 09/07/25 07:30 High Flow Nasal Cannula 09/07/25 07:24 36.7 C 09/07/25 06:29 96 H 21 96 High Flow Nasal Cannula 09/07/25 06:24 100/75 09/07/25 06:21 96 H 18 92 09/07/25 06:20 21 96 High Flow Nasal Cannula 09/07/25 06:12 93 H 22 89 L 09/07/25 06:09 92 H 24 88 L 09/07/25 06:00 94 H 24 92/62 L 87 L Oxymask 09/07/25 05:58 94 H 24 83/60 L 85 L Oxymask 09/07/25 05:54 99 H 25 H 81 L Oxymask 09/07/25 05:39 98 H 25 H 89/63 L 89 L Nasal Cannula 09/07/25 05:15 90 25 H 107/75 93 Nasal Cannula 09/07/25 04:45 101 H 25 H 88/65 L 92 Nasal Cannula 09/07/25 04:30 88 24 92 Nasal Cannula 09/07/25 04:00 37 C 89 24 83/68 L 91 Nasal Cannula 09/07/25 03:24 93 H 24 92 09/07/25 03:15 90 24 91 09/07/25 03:00 90 23 89 L 09/07/25 02:45 89 24 91 09/07/25 02:27 89 21 88 L 09/07/25 02:12 90 23 90 09/07/25 02:00 87 28 H 92 09/07/25 02:00 104/69 09/07/25 01:39 81 24 91 09/07/25 01:15 83 23 93 09/07/25 01:06 91/64 L 09/07/25 01:06 80 28 H 94 09/07/25 01:03 80 22 93 Nasal Cannula 09/07/25 01:01 78/50 L 09/07/25 01:00 82 19 88 L 09/07/25 00:48 83 23 94 09/07/25 00:30 82 22 94 09/07/25 00:12 84 22 95 09/07/25 00:00 90/67 L 09/07/25 00:00 94 H 09/06/25 23:39 37.2 C 80 23 95 Nasal Cannula 09/06/25 23:02 96 H 24 111/72 95 Nasal Cannula 09/06/25 22:30 97/78 L 09/06/25 22:30 88 21 96 09/06/25 22:00 88/63 L 09/06/25 22:00 70 18 96 09/06/25 21:45 76 20 96 09/06/25 21:39 81 23 96 09/06/25 21:24 83 22 96 O2 Flow Rate FiO2 09/07/25 08:00 09/07/25 07:30 50 90 09/07/25 07:24 09/07/25 06:29 50 100 09/07/25 06:24 09/07/25 06:21 09/07/25 06:20 09/07/25 06:12 09/07/25 06:09 09/07/25 06:00 15 09/07/25 05:58 15 09/07/25 05:54 7 09/07/25 05:39 3 09/07/25 05:15 3 09/07/25 04:45 3 09/07/25 04:30 3 09/07/25 04:00 3 09/07/25 03:24 09/07/25 03:15 09/07/25 03:00 09/07/25 02:45 09/07/25 02:27 09/07/25 02:12 09/07/25 02:00 09/07/25 02:00 09/07/25 01:39 09/07/25 01:15 09/07/25 01:06 09/07/25 01:06 09/07/25 01:03 3 09/07/25 01:01 09/07/25 01:00 09/07/25 00:48 09/07/25 00:30 09/07/25 00:12 09/07/25 00:00 09/07/25 00:00 09/06/25 23:39 2 09/06/25 23:02 2 09/06/25 22:30 09/06/25 22:30 09/06/25 22:00 09/06/25 22:00 09/06/25 21:45 09/06/25 21:39 09/06/25 21:24 Lab & Micro Results (Past 24 Hours) RBC 5.19 M/uL (4.70-6.10) 09/07/25 WBC 11.29 K/ul (4.8-10.8) H 09/07/25 Hgb 14.8 g/dl (14.0-18.0) 09/07/25 Hct 45.1 % (42.0-52.0) 09/07/25 MCV 86.9 fL (80.0-100.0) 09/07/25 MCH 28.5 pg (25.0-34.0) 09/07/25 MCHC 32.8 g/dL (32.0-36.0) 09/07/25 RDW Standard Deviation 43.5 fL (36.4-46.3) 09/07/25 RDW Coefficient of Variation 13.6 % (11.5-14.5) 09/07/25 Plt Count 197 K/uL (130-400) 09/07/25 MPV 10.7 fL (9.4-12.4) 09/07/25 Neutrophils (%) (Auto) 79.2 % 09/07/25 Lymphocytes (%) (Auto) 12.2 % 09/07/25 Monocytes # (Auto) 0.90 K/uL (0.11-0.59) H 09/07/25 Eosinophils # (Auto) 0.00 K/uL (0.00-0.50) 09/07/25 Immature Granulocyte % (Auto) 0.3 % 09/07/25 Neutrophils # (Auto) 8.95 K/uL (1.40-6.50) H 09/07/25 Lymphocytes # (Auto) 1.38 K/uL (1.20-3.40) 09/07/25 Monocytes # (Auto) 0.90 K/uL (0.11-0.59) H 09/07/25 Eosinophils # (Auto) 0.00 K/uL (0.00-0.50) 09/07/25 Basophils # (Auto) 0.03 K/uL (0.00-0.20) 09/07/25 Immature Granulocyte # (Auto) 0.03 K/uL (0.01-0.20) 5 Na 132 mmol/L (136-145) L 09/07/25 K 4.4 mmol/L (3.5-5.1) 09/07/25 Cl 99 mmol/L (98-107) 09/07/25 CO2 21 mmol/L (21-32) 09/07/25 Anion Gap 12 (3-11) H 09/07/25 BUN 43 mg/dl (6-23) H 09/07/25 Creatinine 1.66 mg/dl (0.6-1.4) H 09/07/25 BUN/Creatinine Ratio 25.9 (10-20) H 09/07/25 Glu 198 mg/dl (70-99(Fasting)) H 09/07/25 Ca 8.5 mg/dl (8.6-10.3) L 09/07/25 Phosphorus Level 5.2 mg/dl (2.5-4.9) H 09/07/25 Total Bilirubin 0.7 mg/dl (0.2-1.0) 09/07/25 Direct Bilirubin 0.1 mg/dl (0-0.2) 09/07/25 AST 309 U/L (13-39) H 09/07/25 ALT 69 U/L (7-52) H 09/07/25 Alkaline Phosphatase 102 U/L (34-104) 09/07/25 TP 6.7 gm/dl (6.0-8.3) 09/07/25 Albumin 3.8 gm/dl (3.4-5.0) 09/07/25 Globulin 2.7 gm/dl (2.5-4.0) 09/06/25 Albumin/Globulin Ratio 1.4 (0.9-2) 09/06/25 Mg 2.6 mg/dl (1.7-2.4) H 09/07/25 04:23 Calcium Level 8.5 mg/dl (8.6-10.3) L 09/07/25 04:23 Prothromb Time International Ratio 1.0 (0.9-1.1) 09/06/25 17:2 8 Nomi Test Pass 09/07/25 06:22 Diagnostic Findings (Past 24 Hours) Chest X-Ray 09/06/25 16:07 EXAM: Portable AP chest radiograph TECHNIQUE: AP portable radiograph of the chest was obtained. INDICATION: Shortness of breath Comparison: Chest radiograph FINDINGS: LINES and TUBES: None CARDIOVASCULAR: Cardiac silhouette is mildly enlarged in size. LUNGS/PLEURA: No focal consolidation identified. Bibasilar atelectasis. Mild pulmonary vascular congestion and chronic interstitial lung changes. Small pleural fluids may be present. No discernible pneumothorax. OSSEOUS/OTHER: No displaced acute osseous process identified. Partially included thoracolumbar spine fusion device. IMPRESSION: Mild congestive changes of the cardiovascular system as above. Electronically signed by Salty Pulido 09-06-2025 4:36 PM Chest X-Ray 09/07/25 06:00 EXAM: XR chest 1V portable CLINICAL HISTORY: Hypoxia TECHNIQUE: An X-ray image of the chest was obtained in the AP projection. 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 FINDINGS: Diffuse, ill-defined ground-glass opacities are noted involving both lungs, suggesting the possibility of congestion or edema. Differential possibilities include multifocal pneumonitis. The cardiomediastinal silhouette is within normal limits. Left pleural space is obliterated. No acute osseous abnormality is identified. IMPRESSION: Diffuse, ill-defined ground-glass opacities are noted involving both lungs with bilatreal hilar prominence-New onset. Left pleural space is obliterated-stable. Electronically signed by Oziel Betts 09-07-2025 06:53 AM I & O Totals 24 Hours 09/06/25 09/07/25 09/08/25 06:59 06:59 06:59 Intake Total 1392.70 / 1392.70 11.5 / 11.5 Output Total 2325 / 2325 0 / 0 Balance -932.30 / -932.30 11.5 / 11.5 Cumulative 09/06/25 10:59 thru 09/07/25 08:00 Intake Total 1404.20 Output Total 2325 Balance -920.80 RT Ventilator Mngmt (Last Documented) Ventilator Ordered Settings Respiratory Rate 21 09/07/25 06:29 Fraction of Inspired Oxygen 90 09/07/25 07:30 Ventilator - PT Measurements Respiratory Rate 21 Coding Level of Care Code 75801 CRITICAL CARE 1ST 30-74M Diagnoses Urinary retention R33.9 Elevated troponin R79.89 Cardiac arrest I46.9 Complete heart block I44.2 Myocarditis I51.4
[2025-09-07] MEDS ORDERED: ASPIRIN 81 MG ECTAB PO SCH (09:00)
[2025-09-07] MEDS: NOREPINEPHRINE/D5W 4 MG/250 ML IV ONE (09:18)
[2025-09-07] MEDS: HEPARIN (PORCINE) 1000 UNIT/ML 10 ML (CATH LAB USE ONLY) ONE (09:20)
[2025-09-07] MEDS: MIDAZOLAM HCL 1 MG/ML 2ML VIAL ONE (09:20)
[2025-09-07] MEDS: OPTIRAY 350 ONE (09:20)
[2025-09-07] MEDS: niCARdipine 2,000 MCG/20 ML SYR ONE (09:21)
[2025-09-07] MEDS: NITROGLYCERIN/D5W 100MCG/ML 20ML SYR ONE (09:21)
--- NOTE | 2025-09-07 09:21 | Electrocardiogram Report ---
Test Reason : Blood Pressure : */* mmHG Vent. Rate : 63 BPM Atrial Rate : 113 BPM P-R Int : * ms QRS Dur : 160 ms QT Int : 468 ms P-R-T Axes : 75 129 231 degrees QTcB Int : 478 ms Sinus tachycardia with complete heart block and ventricular escape rhythm Right bundle branch block Marked T-wave abnormality, consider inferolateral ischemia Abnormal ECG When compared with ECG of 06-Sep-2025 11:12, No significant change was found Confirmed by Rigo Chen ([id number]) on 09/07/2025 9:21:33 AM Referred By: REFERRED SELF Confirmed By: Rigo Chen
[2025-09-07] MEDS: FUROSEMIDE 40 MG/4 ML VIAL IV ONE (09:26)
[2025-09-07] MEDS: SODIUM BICARB 8.4% INJ 50 MEQ/50 ML SYR IV ONE (09:30)
--- NOTE | 2025-09-07 09:31 | Pre Anesthesia Assessment ---
Date of Service September 07, 2025 Pre Sedation Assessment Vital Signs Temp Pulse Pulse Resp BP BP Pulse Ox 09/07/25 08:00 97 H 09/07/25 07:30 09/07/25 07:24 98.1 F 09/07/25 06:29 96 H 21 96 09/07/25 06:24 100/75 09/07/25 06:21 96 H 18 92 09/07/25 06:20 21 96 09/07/25 06:12 93 H 22 89 L 09/07/25 06:09 92 H 24 88 L 09/07/25 06:00 94 H 24 92/62 L 87 L 09/07/25 05:58 94 H 24 83/60 L 85 L 09/07/25 05:54 99 H 25 H 81 L 09/07/25 05:39 98 H 25 H 89/63 L 89 L 09/07/25 05:15 90 25 H 107/75 93 09/07/25 04:45 101 H 25 H 88/65 L 92 09/07/25 04:30 88 24 92 09/07/25 04:00 98.6 F 89 24 83/68 L 91 09/07/25 03:24 93 H 24 92 09/07/25 03:15 90 24 91 09/07/25 03:00 90 23 89 L 09/07/25 02:45 89 24 91 09/07/25 02:27 89 21 88 L 09/07/25 02:12 90 23 90 09/07/25 02:00 87 28 H 92 09/07/25 02:00 104/69 09/07/25 01:39 81 24 91 09/07/25 01:15 83 23 93 09/07/25 01:06 91/64 L 09/07/25 01:06 80 28 H 94 09/07/25 01:03 80 22 93 09/07/25 01:01 78/50 L 09/07/25 01:00 82 19 88 L 09/07/25 00:48 83 23 94 09/07/25 00:30 82 22 94 09/07/25 00:12 84 22 95 09/07/25 00:00 90/67 L 09/07/25 00:00 94 H 09/06/25 23:39 99.0 F 80 23 95 09/06/25 23:02 96 H 24 111/72 95 09/06/25 22:30 97/78 L 09/06/25 22:30 88 21 96 09/06/25 22:00 88/63 L 09/06/25 22:00 70 18 96 09/06/25 21:45 76 20 96 09/06/25 21:39 81 23 96 09/06/25 21:24 83 22 96 09/06/25 21:12 74 24 95 09/06/25 20:57 89 21 96 09/06/25 20:48 77 21 95 09/06/25 20:30 77 21 95 09/06/25 20:12 86 22 90 09/06/25 20:00 92 H 20 93 09/06/25 20:00 98.6 F 99/77 L 09/06/25 20:00 09/06/25 19:57 89 17 92 09/06/25 19:42 82 24 91 09/06/25 19:39 84 22 89 L 09/06/25 19:27 78 21 88 L 09/06/25 19:13 102/66 09/06/25 19:12 83 23 90 09/06/25 19:08 103/61 09/06/25 19:06 96 H 22 87 L 09/06/25 19:03 100 H 20 88 L 09/06/25 19:00 110/70 09/06/25 18:08 99.0 F 09/06/25 18:06 80 19 99/63 L 95 09/06/25 17:00 66 20 99/76 L 95 09/06/25 16:45 100/71 09/06/25 16:15 63 16 95/70 L 95 09/06/25 16:00 62 09/06/25 16:00 91/67 L 09/06/25 15:00 95/68 L 09/06/25 14:54 63 20 95 09/06/25 14:03 65 22 107/72 95 09/06/25 13:48 63 18 100/67 96 09/06/25 13:30 68 21 115/81 99 09/06/25 13:15 66 19 109/78 88 L 09/06/25 13:11 09/06/25 13:11 98.2 F 66 21 114/78 97 09/06/25 12:45 66 18 122/85 94 09/06/25 12:30 67 18 122/85 94 09/06/25 12:20 74 18 118/86 94 09/06/25 11:08 59 L 18 109/85 97 09/06/25 11:08 97 09/06/25 11:08 09/06/25 11:08 59 L 18 97 09/06/25 11:08 97.9 F 59 L 18 109/85 97 O2 Del Method O2 Flow Rate FiO2 09/07/25 08:00 09/07/25 07:30 High Flow Nasal Cannula 50 90 09/07/25 07:24 09/07/25 06:29 High Flow Nasal Cannula 50 100 09/07/25 06:24 09/07/25 06:21 09/07/25 06:20 High Flow Nasal Cannula 09/07/25 06:12 09/07/25 06:09 09/07/25 06:00 Oxymask 15 09/07/25 05:58 Oxymask 15 09/07/25 05:54 Oxymask 7 09/07/25 05:39 Nasal Cannula 3 09/07/25 05:15 Nasal Cannula 3 09/07/25 04:45 Nasal Cannula 3 09/07/25 04:30 Nasal Cannula 3 09/07/25 04:00 Nasal Cannula 3 09/07/25 03:24 09/07/25 03:15 09/07/25 03:00 09/07/25 02:45 09/07/25 02:27 09/07/25 02:12 09/07/25 02:00 09/07/25 02:00 09/07/25 01:39 09/07/25 01:15 09/07/25 01:06 09/07/25 01:06 09/07/25 01:03 Nasal Cannula 3 09/07/25 01:01 09/07/25 01:00 09/07/25 00:48 09/07/25 00:30 09/07/25 00:12 09/07/25 00:00 09/07/25 00:00 09/06/25 23:39 Nasal Cannula 2 09/06/25 23:02 Nasal Cannula 2 09/06/25 22:30 09/06/25 22:30 09/06/25 22:00 09/06/25 22:00 09/06/25 21:45 09/06/25 21:39 09/06/25 21:24 09/06/25 21:12 09/06/25 20:57 09/06/25 20:48 09/06/25 20:30 09/06/25 20:12 09/06/25 20:00 09/06/25 20:00 09/06/25 20:00 Nasal Cannula 2 09/06/25 19:57 Nasal Cannula 2 09/06/25 19:42 09/06/25 19:39 09/06/25 19:27 09/06/25 19:13 09/06/25 19:12 09/06/25 19:08 09/06/25 19:06 09/06/25 19:03 09/06/25 19:00 09/06/25 18:08 09/06/25 18:06 09/06/25 17:00 09/06/25 16:45 09/06/25 16:15 Room Air 09/06/25 16:00 09/06/25 16:00 09/06/25 15:00 09/06/25 14:54 09/06/25 14:03 09/06/25 13:48 09/06/25 13:30 09/06/25 13:15 09/06/25 13:11 Nasal Cannula 2 09/06/25 13:11 Nasal Cannula 2 09/06/25 12:45 Room Air 09/06/25 12:30 Room Air 09/06/25 12:20 Room Air 09/06/25 11:08 Nasal Cannula 2 09/06/25 11:08 Nasal Cannula 2 09/06/25 11:08 Nasal Cannula 2 09/06/25 11:08 Nasal Cannula 2 09/06/25 11:08 Nasal Cannula 2 Cardiovascular + regular rate Respiratory + respiratory effort normal Pre-Sedation Airway Assessment Smoking Status: Never smoker Hx Sleep Apnea: No Hx Difficult Intubation: No Short, Thick Neck: No Thyromental Distance: < 3.5 Finger Breadths Oral Cavity: + Dental Abnormalities ASA: ASA3 Procedure Planning Contraindications for Sedation: none Current Medications Reviewed: Yes Notes The planned sedation has been discussed with the patient. Informed Consent was obtained. I have identified the patient, determined the appropriateness of sedation and have assessed the patient immediately prior to the procedure. All medicine(s) and interventions are by my order.
--- NOTE | 2025-09-07 09:33 | Cardiac Catheterization ---
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 Cardiac Status Clinical evaluation leading to the procedure CAD Presenation: Sx unlikely to be ischemic Diagnostic Physicians Name: Power Rosario MD Closure Device Recommendations: Medical Therapy and/or Counseling Cardiac Cath Procedure Full Procedure Date September 07, 2025 Pre-Procedure Diagnosis Pre-Procedure Diagnosis: CHF and Arrhythmia (Complete heart block) AUC Score AUC Score: 9 Post-Procedure Diagnosis Post-Procedure Diagnosis: Decreased LV Systolic Function and Elevated Intracardiac Pressures Procedure(s) Performed Procedure(s) Performed: Left Heart Cath, Right Heart Cath, Ultrasound Guided Vascular Access, Femoral Artery Angiography and Procedure (Impella CP) Marine Steward Power Rosario MD Bumper And Painter(s) Juanita Elizondo Estimated Blood Loss Estimated Blood Loss: 35 Medication(s) Medication(s): Fentanyl, Heparin, Hydralazine, Lidocaine 1%, Norepinephrine and Versed Summary of Findings Indication: Cardiogenic shock, fulminant myocarditis, complete heart block. Minimal nonobstructive coronary artery disease on cardiac cath yesterday. Access: 7 Fr right CFV, 14 Fr right ELECTRICAL SIGN SERVICER under ultrasound guidance. Left radial artery A-line placement under ultrasound guidance. Catheters: Pigtail, 6 Fr [place] Procedure: Right CFV temporary pacemaker removed. 7 Fr sheath exchanged for new 7 Fr sheath Right ELECTRICAL SIGN SERVICER access with micropuncture under ultrasound guidance and 6 Fr sheath placed. 6 Fr [place] navigated into pulmonary artery under fluoroscopic guidance Angiography of right ELECTRICAL SIGN SERVICER/iliac through sheath Heparin to ACT >250 6 Fr sheath exchanged for 14 Fr Impella sheath over stiff wire 5 Fr pigtail navigated into LV over 0.35 J-wire Wire exchanged for 0.18 Impella wire Impella CP placed across aortic valve to LV Outputs of 3.8 to 4.0 L/min on auto settings Maps in 80s to 90s. [place], Impella sutured and secured in place. Left radial artery A-line placed under ultrasound guidance. Findings: RA 14 RV 42/15 PA 40/32 (34) PAWP 28 LVEDP 24 PaSat 39% AoSat 94% on highflow NC 50L Thermo CO/CI 2.1/1.01 on 0.1 mcg/kg/min SHOP LABORER 0.36 W Masood 0.6 Sona CO/CI 2.7/1.1 Summary: 1. Cardiogenic shock (class C-D) 2. Left and right sided heart failure 3. Mild pulmonary hypertension (postcapillary) 4. Successful placement of Impella CP device Recommendations: Case discussed with qualifications examiner and [facility]. Plan on transfer for possible additional mechanical circulatory support. Plan for intubation on transfer to ICU. Received additional 40 mg IV Lasix. Hemodynamics Rest Ao:: 89/72/77 Final Ao: 97/86/91 LV: 81/24 Recommendations Recommendations: Medical Therapy and/or Counseling Radiation Exposure (mGy) 661 Contrast (mls) 20 Anesthesia Moderate 1331-5259 Procedural Complication(s) None Disposition ICU I attest to the content of the Intraoperative Record and any orders documented therein. Any exceptions are noted below. [facility] Card Cath Procedure Codes Cardiac Catheterization Procedure 1: Cardiovascular Cath Procedures: 23190 Right and Left Heart Cath (+/-LV) Therapeutic Services & Ancillary Procedure 1: Cardiovascular Tx and Anc Procedures: 90112 Insertion of Percutaneous Ventricular Assist Device Procedure 2: Cardiovascular Tx and Anc Procedures: 33516 Ultrasonic Guidance Vascular Access Procedure 3: Cardiovascular Tx and Anc Procedures: 73447 Ultrasonic Guidance Vascular Access Procedure 4: Cardiovascular Tx and Anc Procedures: 75388 Arterial Line Placement Moderate Sedation Procedure 1: Sedation/Anesthesia: 00822 Mod Sedation by the same physician;Init15 Min Child Age 5 & Up PG Care Time/CCT Total # of Minutes Spent Total Time Spent with Patient: Total time spent is greater than 50% in coordination of care (as documented) at patient's floor/unit and/or counseling patient:
--- NOTE | 2025-09-07 09:35 | Procedure Note ---
Procedure Note Date of Service September 07, 2025 Procedure Date: Noted above Procedure: Endotracheal intubation Pre-procedure Diagnosis: Hemodynamic instability, fulminant myocarditis Post-procedure Diagnosis: same as above Prior to Procedure: Informed Consent: emergent Attending Staff: Micaela Starks DO The identity of the patient was confirmed and a bedside time out was performed. Description of Procedure: Patient was evaluated and required intubation for impending respiratory failure. The patient was prepared in the usual fashion. A video laryngoscope was used. A 8.0 mm inner diameter endotrachial tube was placed endotracheally to 26 cm at the teeth. A grade 1 view was obtained. The endotracheal tube was noted to pass through the vocal cords. Chest rise was bilateral. Bilateral breath sounds were heard without air sounds in the abdomen. Mist was noted in the endotracheal tube. End-tidal CO2 measurement was positive. Chest x-ray shows proper endotracheal tube placement. Complications: None Findings: Not applicable Specimens: Not applicable Estimated blood loss: Zero Patient height 75 inches (6 3): [place] body weight 84.5 kg, current tidal volume 600 MNPG Procedure Codes (Charges) Resuscitation Resuscitation: 53664 Endotracheal Intubation, emergency Coding CPT Codes Resuscitation - Resuscitation: 78348 Endotracheal Intubation, emergency (PG3 1500) Additional Codes Date of Service (PG.SURGERY)
[2025-09-07] MEDS ORDERED: MIDAZOLAM BOLUS FROM BAG IV PRN (09:49)
[2025-09-07] MEDS ORDERED: MIDAZOLAM HCL 125MG/250ML D5W IV ONE (09:52)
[2025-09-07] MEDS ORDERED: fentaNYL citrate 2,500 MCG/250 ML BAG IV ONE (09:52)
[2025-09-07] MEDS: fentaNYL citrate 2,500 MCG/250 ML BAG IV SCH (10:19)
[2025-09-07] MEDS: MIDAZOLAM HCL 125 MG/250 ML BAG IV SCH (10:22)
[2025-09-07] MEDS: RAPID SEQUENCE INDUCTION BAG ONE (10:22)
[2025-09-07] MEDS: NOREPINEPHRINE/D5W 4 MG/250 ML PLCT IV SCH (10:22)
--- NOTE | 2025-09-07 10:24 | XRay Report ---
XR chest 1V portable CLINICAL HISTORY: eval ETT placement COMPARISON STUDY: 09/07/2025 FINDINGS: Endotracheal tube tip is just below the thoracic inlet. Aortic catheter tip overlies the re gion of the left ventricle. [place] catheter from an inferior approach is present, with tip overlyi ng the region of the distal main or proximal right pulmonary artery. There is stable mild cardiomegal y with mild pulmonary vascular congestion. Scattered patchy pulmonary opacities most prominent at the left lower lung are mildly increased. No pneumothorax seen.. IMPRESSION: 1. Endotracheal tube tip is just below the thoracic inlet. 2. Increased patchy pulmonary opacities most prominent at the left lower lung. 3. Otherwise as described. ACT 112: Negative or not required by law. Electronically signed by: Fernando Reddy M.D. 09/07/2025 10:23 AM
[2025-09-07 10:26] LABS: iSTAT Art Bld Gas Base Excess -7.0 mmol/L (-9-1.8); iSTAT Art Bld Gas pCO2 Correct 36 mmHg (35-46); iSTAT Art Bld Gas pH Corrected 7.323 (7.35-7.45); iSTAT Arterial Blood Gas pO2 C 63
[2025-09-07] MEDS ORDERED: Nursing to Pharmacy Communication SCH (10:30)
[2025-09-07] MEDS ORDERED: LIDOCAINE IV BOLUS & DRIP IV STA (10:44)
[2025-09-07 10:46] LABS: iSTAT Art Bld Gas Base Excess -6.0 mmol/L (-9-1.8)
[2025-09-07 10:46] LABS: iSTAT Art Bld Gas Base Excess -2.0 mmol/L (-9-1.8)
[2025-09-07] MEDS ORDERED: LIDOCAINE HCL/D5W 2000 MG/500 ML BAG IV ONE (10:46)
[2025-09-07 10:47] LABS: iSTAT Art Bld Gas Base Excess -2.0 mmol/L (-9-1.8)
[2025-09-07 10:48] LABS: iSTAT Art Bld Gas Base Excess -6.0 mmol/L (-9-1.8)
--- NOTE | 2025-09-07 10:51 | XCELERA ---
[id number] \\[id number]
[2025-09-07] MEDS: LIDOCAINE/D5W DRIP 4MG/ML 2,000 MG/500 ML BAG IV SCH (10:56)
[2025-09-07] MEDS: LIDOCAINE 2% 20 MG/ML 5 ML SYR IV STA (10:56)
--- NOTE | 2025-09-07 13:44 | Discharge Summary ---
Date of Service September 07, 2025 Admission HPI Per Admitting Provider Pt is a 60 you male without significant PMH who presented to [facility] with complaints of progressive SOB and belly pain. While in the [facility], pt reportedly arrested and received CPR. He was found to have heart block and externally paced and started on levofed. Pt was transferred to this hospital were a heart alert was called. Pt has been examined by interventional cardiology and will be heading to labor gang supervisor for further diagnostics. At time of exam, pt denies chest pain or tightness. He denies tobacco or alcohol use. Pt is not diabetic and does not have a hx of HLD. However, pt reports family hx of HLD. Principal Diagnosis myocarditis, completed heart block, acute respiratory distress Discharge Exam General: Alert. Ashen. Skin: Cool, dry, Head: Atraumatic Ears, nose, mouth and throat: airway patent Cardiovascular: Decreased peripheral perfusion Respiratory: no respiratory distress Gastrointestinal: Non distended Musculoskeletal: No deformity Discharge Data Allergies Allergy/AdvReac Type Severity Reaction Status Date / Time No Known Allergies Allergy Unverified 05/30/20 13:45 Consultations 09/06/25 11:15 Consult Dimension Mill Worker Stat ED Decision to Admit Stat 09/06/25 11:55 Consult Cardiology Routine 09/06/25 11:56 Consult Dimension Mill Worker Routine 09/06/25 15:17 Consult Urology Stat Procedures Performed Operation Date: 09/07/25 07:30 Actual Procedures p Cineradiography w/Routine Exam - Power Rosario MD p Right Heart Cath Only - Power Rosario MD s Impella Insertion LT Heart - Power Rosario MD s Fluoroscopy Up To 1 Hour - Power Rosario MD Ordered Studies 09/06/25 11:04 CL Cath Imgs for PACS use only Stat 09/07/25 07:04 CL Cath Imgs for PACS use only Urgent Hospital Course (1) Cardiac arrest: (2) Complete heart block: (3) Elevated troponin: Plan Pt is a 60 yo male without significant PMH who presents as transfer from [facility] with SOB, abdominal pain, elevated troponin, complete heart block and s/p cardiac arrest. Pt taken for cardiac cath and further diagnostics to determine cause of new onset cardiac arrhythmia. Admitted to ICU. #Cardiac arrest/complete heart block/elevated troponin/myocarditis Overnight, pt decompensated and requiring an increased level of care due to progressive decreased cardiac function and acute respiratory failure. - Cardiology consulted Pt had cardiac cath x 2 - Started on colchicine -Transferred to [facility] Dispo: ICU Diet: TBD VTE prophylaxis: Heparin Code: Full Total Time Total Time Spent Total Time Spent (In Minutes): <30 Discharge Plan Discharge Items Patient Disposition: Transfer Acute [facility] Reason For Visit: CHEST PAIN Discharge Diagnosis: Bradycardia, myocarditis, acute respiratory failure Condition on Discharge: Critical Activity: As commented below Activity Comment: Transferred to [facility] Non-emergency contact: Primary Care Provider Call non-emergency contact if: you have any medication questions Follow-up/Referrals: PCP,NO [Primary Care Provider] - Diet: Other - See Diet Comment Addtl Attending Provider Instructions: Pt transferred to [facility] Pending Studies at Discharge: No Stand-Alone Forms: My [employer] Skilled Items Patient informed of condition?: Yes DNR: No Discharge Level of Care: Other Communicable Disease: No Discharge Prognosis: Deteriorating Lines: Peripheral IV Urinary Catheter: Yes Medications and DC Order Prescriptions: Continued atorvastatin 20 mg tablet 20 mg PO HS sertraline 50 mg tablet 50 mg PO DAILY Discharge Orders: Discharge Order (Routine); Ordered 09/07/25 Ordered By: Carlita Morin/Other Patient Handouts: Prediabetes, 5 Steps for Eating Healthier Admission Data Admit Date/Time: 09/06/25 11:56 Attending Provider: Saw Vega Admit Provider: Carlita Andrade Primary Care Provider: PCP,NO Other Providers: Gume Starks; Saw Vega; Power Rosario; Ham Riggins. Other Interventions: Discharge Summary Assessment (RN) Last Done: 09/07/25 11:46 Supervising Physician Co-Signing Physician Notes I personally examined the patient and verified all leslie points of history and exam, discussed case, and agree with decision making with Dr Andrade Was unable to see patient today. Cardiology input greatly appreciated. ICU assistance greatly appreciated. I did complete transfer paperwork. Chart reviewed . Fulminant myocarditis causing PEA arrest and acute CHFdecompensating further back into cardiogenic shock/severe systolic CHFImpella placed by cardiology. Flown to tertiary care for ongoing evaluation and treatment. Resident Activity Tracking Resident Involvement: Resident Care Provided Care Provided: Adult [facility] Medicine
--- NOTE | 2025-09-07 13:59 | Electrocardiogram Report ---
Test Reason : Blood Pressure : */* mmHG Vent. Rate : 82 BPM Atrial Rate : 122 BPM P-R Int : * ms QRS Dur : 144 ms QT Int : 392 ms P-R-T Axes : 78 -86 107 degrees QTcB Int : 457 ms Suspect unspecified pacemaker failure Left axis deviation Non-specific intra-ventricular conduction block Inferior infarct , age undetermined Anterolateral infarct , age undetermined Abnormal ECG When compared with ECG of 06-Sep-2025 19:16, (unconfirmed) No significant change Confirmed by Rigo Chen ([id number]) on 09/07/2025 1:59:36 PM Referred By: REFERRED SELF Confirmed By: Rigo Chen
--- NOTE | 2025-09-07 14:00 | Electrocardiogram Report ---
Test Reason : Blood Pressure : */* mmHG Vent. Rate : 96 BPM Atrial Rate : 119 BPM P-R Int : * ms QRS Dur : 148 ms QT Int : 382 ms P-R-T Axes : 83 268 97 degrees QTcB Int : 482 ms Suspect unspecified pacemaker failure Right bundle branch block Possible Lateral infarct , age undetermined Inferior infarct , age undetermined Abnormal ECG When compared with ECG of 06-Sep-2025 19:19, (unconfirmed) No significant change Confirmed by Rigo Chen ([id number]) on 09/07/2025 2:00:37 PM Referred By: REFERRED SELF Confirmed By: Rigo Chen
--- NOTE | 2025-09-07 15:39 | Billing Data ---
Date of Service September 07, 2025 Coding Level of Care Code 65220 IN/OBS DISCH 30 MIN/LESS
--- NOTE | 2025-09-08 15:13 | Electrocardiogram Report ---
Test Reason : Blood Pressure : */* mmHG Vent. Rate : 82 BPM Atrial Rate : 122 BPM P-R Int : * ms QRS Dur : 138 ms QT Int : 396 ms P-R-T Axes : 80 -79 116 degrees QTcB Int : 462 ms Suspect unspecified pacemaker failure Ventricular-paced rhythm Abnormal ECG When compared with ECG of 06-Sep-2025 14:50, Electronic ventricular pacemaker has replaced Sinus tachycardia Confirmed by Rigo Chen ([id number]) on 09/08/2025 3:12:49 PM Referred By: REFERRED SELF Confirmed By: Rigo Chen
[2025-09-09 09:30] LABS: iSTAT Art Bld Gas Base Excess -7.0 mmol/L (-9-1.8)
== END 2025-09-07 11:45 | disposition short-term general hospital (02) | DRG 286 ==
LOC: ED 11:08 → CC 11:30 → SUATTDRO 11:56 → 1E 11:56 → CC 12:21
PROC: CLB.TTP (2025-09-06 11:15)
PROC: CLB.CRH (2025-09-07 07:30)